=== PATIENT | female | born 1985 | race Caucasian/White ===

== ENCOUNTER 2022-09-03 01:09 | Emergency (ER) | payer BC ==
[~2022-09-03] VITALS: Ht 165.1 cm; Wt 72.6 kg
[2022-09-03 01:23] VITALS: BP_SYST 113
== END 2022-09-03 02:30 | disposition left against medical advice (07) ==
LOC: SED 01:09
DX: H57.13 Ocular pain, bilateral (principal); H92.03 Otalgia, bilateral; Z53.21 Procedure and treatment not carried out due to patient leaving prior to being seen by health care provider